=== PATIENT | male | born 1950 | race Caucasian/White ===

== ENCOUNTER → 2017-04-23 | Outpatient (CLI) | payer MEDICARE ==
--- NOTE | 2017-04-23 17:14 | PCVCIMAG ---
EXAM: BILATERAL CAROTID DUPLEX INDICATION: Carotid Occlusive Disease. FINDINGS: Doppler Measurements (centimeters per second): RIGHT: Peak CCA-97, Peak ECA-100, Diastolic ICA-32, Peak ICA-112, ICA/CCA Ratio-1.2. LEFT: Peak CCA-104, Peak ECA-143, Diastolic ICA-49, Peak ICA-166, ICA/CCA Ratio-1.6. RIGHT CAROTID: The carotid bulb has mild plaque. The proximal internal carotid artery shows <40% stenosis. The common carotid artery shows no significant stenosis. The external carotid artery shows no significant stenosis. LEFT CAROTID: The carotid bulb has moderate plaque. The proximal internal carotid artery shows 50-60% stenosis. The common carotid artery shows no significant stenosis. The external carotid artery shows no significant stenosis. Antegrade flow in both vertebral arteries. IMPRESSION: <40% stenosis of the right internal carotid artery with mild plaque. 50-60% stenosis of the left internal carotid artery with moderate plaque. LOC:[place] [id number]
--- NOTE | 2017-04-26 12:24 | PCVCIMAG ---
EXAM: ULTRASOUND OF THE THYROID INDICATION: Thyroid nodules. FINDINGS: The right thyroid lobe measures 6.4 x 2.4 x 2.8 cm. The left thyroid lobe measures 5.3 x 3.0 x 2.8 cm. 1.0 x 1.1 x 1.2 cm partially cystic/partially solid nodule mid right thyroid lobe. There is a second 0.9 x 1.1 cm benign cyst inferior pole right thyroid lobe. No discrete nodules seen in the left thyroid lobe. IMPRESSION: 1.2 cm partially solid/partially cystic nodule right mid/lower thyroid lobe. Interval follow-up or further evaluation by ENT is suggested. LOC:[id number]
== END | disposition home or self-care (01) ==
LOC: PCVCIMAG 15:35
PROVIDERS: ATTEND Internal Medicine Cardiovascular Disease
DX: I65.23 Occlusion and stenosis of bilateral carotid arteries (principal); E04.1 Nontoxic single thyroid nodule; I10 Essential (primary) hypertension
CPT/HCPCS: 76536; 93325; 93351; 93880